=== PATIENT | female | born 1960 | race Caucasian/White ===

== ENCOUNTER 2020-06-09 15:17 | Emergency (ER) | payer BC ==
[~2020-06-09] VITALS: Ht 167.6 cm; Wt 106.1 kg
[2020-06-09] MEDS ORDERED: CHLORTHALIDONE25 MG PO (15:38)
[2020-06-09] MEDS ORDERED: NEXIUM40 MG PO (15:39)
[2020-06-09] MEDS ORDERED: COZAAR100 MG PO (15:39)
[2020-06-09] MEDS ORDERED: FENOFIBRATE160 MG PO (15:39)
[2020-06-09] MEDS ORDERED: WELLBUTRIN XL300 MG PO (15:40)
[2020-06-09] MEDS ORDERED: CLARITIN10 MG PO (15:40)
[2020-06-09] MEDS ORDERED: MULTI-VITAMIN1 EACH PO (15:41)
[2020-06-09] MEDS ORDERED: SINGULAIR10 MG PO (15:41)
[2020-06-09] MEDS ORDERED: GLUCOSAMINE DA1 EACH PO (15:42)
[2020-06-09] MEDS ORDERED: FLONASE ALLERG9.9 ML NAS (15:42)
[2020-06-09] MEDS ORDERED: CYCLOBENZAPRINE10 MG PO (15:43)
[2020-06-09] MEDS ORDERED: MIRAPEX0.25 MG PO (15:44)
[2020-06-09] MEDS ORDERED: VENTOLIN HFA18 GM INH (15:45)
== END 2020-06-09 17:18 | disposition home or self-care (01) ==
LOC: ED 15:17
DX: S62.615A Displaced fracture of proximal phalanx of left ring finger, initial encounter for closed fracture (principal); I10 Essential (primary) hypertension; K21.9 Gastro-esophageal reflux disease without esophagitis; Z91.048 Other nonmedicinal substance allergy status; Z88.8 Allergy status to other drugs, medicaments and biological substances; Z88.1 Allergy status to other antibiotic agents; Z79.899 Other long term (current) drug therapy; W23.0XXA Caught, crushed, jammed, or pinched between moving objects, initial encounter
CPT/HCPCS: 64450; 73140; 99283-25